=== PATIENT | male | born 1985 | race Caucasian/White ===

== ENCOUNTER 2018-01-21 19:03 | Emergency (ER) | payer SELFPAY ==
[2018-01-21] MEDS ORDERED: Bupivacaine 0.5% 30 ML SDV INFILT ONE (19:39)
--- NOTE | 2018-01-21 19:48 | EDM.PDOC ---
ED HPI GENERAL MEDICAL PROBLEM - General Chief Complaint: Upper Extremity Injury/Pain Stated Complaint: POSSIBLE BROKEN FINGER Time Seen by Provider: 01/21/18 19:30 Source of Information: Reports: Patient History Limitations: Reports: No Limitations - History of Present Illness INITIAL COMMENTS - FREE TEXT/NARRATIVE: 32-year-old male was playing basketball when he injured his left little finger. He jammed it into the ground and it is now angled and painful with swelling of the PIP joint. Onset: Sudden (Within the past 2 hours) Location: Reports: Upper Extremity, Left Severity: Mild Associated Symptoms: Reports: No Other Symptoms - Related Data Allergies Allergy/AdvReac Type Severity Reaction Status Date / Time No Known Allergies Allergy Verified 01/21/18 19:19 Home Meds: Home Meds NK [No Known Home Meds] 01/21/18 [History] Past Medical History Psychiatric History: Reports: Addiction Review of Systems - Review of Systems Review Of Systems: ROS reveals no pertinent complaints other than HPI. ED EXAM, GENERAL - Physical Exam Exam: See Below Exam Limited By: No Limitations General Appearance: Alert, No Apparent Distress Respiratory/Chest: No Respiratory Distress Extremities: Other (Exam is otherwise limited to the left hand. The patient has ulnar deviation of the base of the fifth finger with swelling of the proximal finger and tenderness) Course - Vital Signs Last Recorded V/S: Last Vital Signs Temp 97.9 F 01/21/18 19:25 Pulse 86 01/21/18 19:25 Resp 14 01/21/18 19:25 BP 168/99 H 01/21/18 19:25 Pulse Ox 98 01/21/18 19:25 - Orders/Labs/Meds Orders: Active Orders 24 hr Category Date Time Status Fingers Fifth Digit Lt F4 [CR] Stat Exams 01/21/18 19:18 Taken Meds: Medications Discontinued Medications Generic Name Dose Route Start Last Admin Trade Name Freq PRN Reason Stop Dose Admin Bupivacaine HCl 30 ml 01/21/18 19:39 Marcaine 0.5% INFILT 01/21/18 19:40 ONETIME ONE - Re-Assessments/Exams Free Text/Narrative Re-Assessment/Exam: 01/22/18 08:19 An x-ray was obtained that showed dislocation of the PIP joint. The patient elected to have this reduced without anesthesia, a quick pull on the finger provided instant reduction without complication. The finger was elke taped and he was sent back to [facility]. Departure - Departure Time of Disposition: 20:07 Disposition: Home, Self-Care 01 Condition: Good Clinical Impression: Closed dislocation of phalanx of hand Qualifiers: Encounter type: initial encounter Qualified Code(s): S63.259A - Unspecified dislocation of unspecified finger, initial encounter - Discharge Information Instructions: Finger or Thumb Dislocation, [id number] Referrals: PCP,None [Primary Care Provider] - Forms: ED Department Discharge Care Plan Goals: Elke tape finger for the next several days until swelling is reduced in range of motion is easier. Ibuprofen should help. Recheck next week if concerns you' re not healing satisfactorily. - My Orders Last 24 Hours: My Active Orders 01/21/18 19:18 Fingers Fifth Digit Lt F4 [CR] Stat - Assessment/Plan Last 24 Hours: My Active Orders 01/21/18 19:18 Fingers Fifth Digit Lt F4 [CR] Stat
--- NOTE | 2018-01-23 08:38 | CR ---
Left fifth finger There is a posterior dislocation of the PIP joint fifth finger. There is no evidence of fracture. Impression: 1. Dislocated PIP joint fifth finger.
== END 2018-01-21 19:56 | disposition home or self-care (01) ==
LOC: JP.ED 19:03
DX: S63.287A Dislocation of proximal interphalangeal joint of left little finger, initial encounter (principal); W23.1XXA Caught, crushed, jammed, or pinched between stationary objects, initial encounter; Y93.67 Activity, basketball
CPT/HCPCS: 26770; 28660; 73140-26-F4; 73140-F4; 99283; 99284-25